=== PATIENT | male | born 1950 | race Caucasian/White ===

== ENCOUNTER 2016-08-03 12:31 | Inpatient (IN) | payer OTHER, MEDICARE ==
[~2016-08-03] VITALS: Ht 175.3 cm; Wt 124.5 kg
[~2016-08-03 12:31] MED LIST: ASPI81TA11 PO; CARV6.25 PO; COUM5TAB PO; DULC10SU3 PR; FERR325T PO; FURO1TAB60 PO; GABA300C5 PO; LIPI80TA PO; NITR2OIN TOPICAL; NOVOINJ3 SQ; OMEP20TA PO; PERC10TA27 PO; PERI8.6T PO; POTA-163 PO; PROS5TAB PO; SPIR25 PO; ULTR50TA5 PO; VITA100018 PO
[2016-08-03 12:33] VITALS: BP 159/77; PULSE 72; RESP 28; TEMP 97.8; O2SAT 97
--- NOTE | 2016-08-03 12:59 | PD ---
Physical Exam Time Seen by Provider: 12:56 Narrative 66 yo M with SOB x 2days. Hx CHF. Denies chest pain. Reports cellulitis coming out of his abdomen. VSS Seen in triage, awaiting bed placement. Data Data Last Documented VS Vital Signs Date Time Temp Pulse Resp B/P Pulse Ox O2 Delivery O2 Flow Rate FiO2 08/03/16 12:33 97.8 72 28 159/77 97 Room Air MDM Supervised Visit with TYLER: Virginia Alexander Aug 03, 2016 12:59
--- NOTE | 2016-08-03 15:31 | PD ---
HPI Chief Complaint: Respiratory Symptoms Time Seen by Provider: 15:31 Travel History International Travel<30 days: No Contact w/Intl Traveler<30days: No Traveled to known affect area: No History of Present Illness HPI 66-year-old male came to the emergency room with history of shortness of breath. Patient has history of congestive heart failure and diabetic. He says that shortness of breath is getting worse over the past 2 days. He is short of breath at rest. His also pointed out to the open sores on his both legs that are weeping and some redness in his abdominal wall area. His abdomen is getting more and more distended. He thinks he is getting fluid overloaded. He called his primary care in [place] who asked them to go to the ER. Vital signs here are within relatively acceptable limits. Patient does look significantly edematous and uncomfortable. He is afebrile in the ER. [facility] Past Medical History Narrative Medical List of his past medical, surgical, social and family history was reviewed from the nursing note. Hx Anticoagulant Therapy: Yes Arthritis: Yes Asthma: No Atrial Fibrillation: Yes Anxiety: No Depression: Yes Heart Rhythm Problems: Yes (CHRONIC AFIB) Cancer: No Cardiovascular Problems: Yes (COPD; a fib) High Cholesterol: Yes Chemotherapy: No Chest Pain: Yes Congestive Heart Failure: Yes COPD: No Cerebrovascular Accident: No Coronary Artery Disease: Yes Diabetes: Yes Diminished Hearing: No Endocrine: Yes Gastrointestinal Disorders: Yes GERD: No Genitourinary: No Hiatal Hernia: Yes (REPAIRED X2) Hypertension: Yes (HYPOTENSION) Immune Disorder: No Implanted Vascular Access Dvce: No Kidney Stones: No Musculoskeletal: Yes (BILAT KNEES ARTHROSCOPY) Neurologic: No Psychiatric: Yes (PTSD) Reproductive: No Respiratory: Yes Immunizations Current: Yes Migraines: No Pneumonia: Yes Radiation Therapy: No Renal Failure: No Seizures: No Sleep Apnea: Yes Thyroid Disease: No Ulcer: No Past Surgical History Abdominal Surgery: Yes (HERNIA REPAIR X2) AICD: No Appendectomy: Yes Arteriovenous Shunt: No Cardiac Surgery: Yes (CARDIAC CATH 2009) Ear Surgery: No Endocrine Surgery: No Eye Surgery: No Genitourinary Surgery: Yes Insulin Pump: No Joint Replacement: No Neurologic Surgery: No Oral Surgery: Yes (TEETH EXTRACTED) Pacemaker: No Tonsillectomy: Yes Other Surgery: Yes (HERNIA REPAIR/KNEES ARTHROSCOPIC/ RIGHT BICEP REPAIRED) Social History Alcohol Use: No Tobacco Use: No Substance Use: No Allergies-Medications (Allergen,Severity, Reaction): Coded Allergies: Shayne (Verified Allergy, Severe, 08/03/16) Comments List of his allergies reviewed from the nursing note. Reported Meds & Prescriptions Reported Meds & Active Scripts Active Reported Artificial Tears Opth Drops (Polyvinyl Alcohol) 1.4% Soln 1 Drop LEFT EYE TID PRN Refresh Opth Drops (Polyvinyl Alcohol-Povidone Opth Drops) 1.4-0.6% Drops 1 Drop EACH EYE QID Ammonium Lactate (Lactic Acid (Ammonium Lactate)) 12% Lotn 1 Applic TOPICAL BID PRN Omnipred Opth Drops (Prednisolone Acetate Opth Drops) 1% Susp 1 Drop LEFT EYE TID Prazosin (Prazosin HCl) 2 Mg Cap 4 Mg PO HS Lisinopril 20 Mg Tab 20 Mg PO DAILY Warfarin 7.5 Mg Tab 7.5 Mg PO SUTUTHSA @ 1600 Lantus Inj (Insulin Glargine) 1,000 Unit/10 Ml Vial 25 Units SQ BID Wellbutrin SR 12 HR (Bupropion HCl) 150 Mg Tab 150 Mg PO Q12HR Coumadin (Warfarin) 5 Mg Tab 5 Mg PO MOWEFR @ 1600 Ultram (Tramadol HCl) 50 Mg Tab 50 Mg PO Q6HR PRN Lipitor (Atorvastatin Calcium) 80 Mg Tab 80 Mg PO HS Gabapentin 300 Mg Cap 900 Mg PO BID Coreg (Carvedilol) 6.25 Mg Tab 6.25 Mg PO BID Vitamin D3 (Cholecalciferol) 1,000 Unit Tab 1,000 Units PO DAILY Potassium Chloride ER (Potassium Chloride) 20 Meq Tab 20 Meq PO DAILY Proscar (Finasteride) 5 Mg Tab 5 Mg PO DAILY Do not crush. Narrative Medication List of his home medications reviewed from the nursing note. Review of Systems Except as stated in HPI: all other systems reviewed are Neg Physical Exam Narrative GENERAL: Awake, alert, obese, anasarca, moderate distress SKIN: Focused skin assessment warm/dry. Anasarca, open sores on bilateral lower extremity that is oozing serosanguineous fluid HEAD: Atraumatic. Normocephalic. EYES: Pupils equal and round. No scleral icterus. No injection or drainage. ENT: No nasal bleeding or discharge. Mucous membranes pink and moist. NECK: Trachea midline. No JVD. CARDIOVASCULAR: Regular rate and rhythm. No murmur appreciated. RESPIRATORY: No accessory muscle use. Clear to auscultation. Breath sounds equal bilaterally. GASTROINTESTINAL: Abdomen soft, non-tender, nondistended. Hepatic and splenic margins not palpable. MUSCULOSKELETAL: No obvious deformities. No clubbing. No cyanosis. 3+ pitting edema. NEUROLOGICAL: Awake and alert. No obvious cranial nerve deficits. Motor grossly within normal limits. Normal speech. PSYCHIATRIC: Appropriate mood and affect; insight and judgment normal. Data Data Last Documented VS Orders Complete Blood Count With Diff (08/03/16 15:36) Basic Metabolic Panel (Bmp) (08/03/16 15:36) B-Type Natriuretic Peptide (08/03/16 15:36) Prothrombin Time / Inr (Pt) (08/03/16 15:36) Magnesium (Mg) (08/03/16 15:36) Troponin I (08/03/16 15:36) Blood Culture (08/03/16 15:36) Iv Access Insert/Monitor (08/03/16 15:36) Electrocardiogram (08/03/16 15:36) Ecg Monitoring (08/03/16 15:36) Oximetry (08/03/16 15:36) Oxygen Administration (08/03/16 15:36) Chest, Single Ap (08/03/16 15:36) Sodium Chloride 0.9% Flush (Ns Flush) (08/03/16 15:45) Furosemide Inj (Lasix Inj) (08/03/16 15:45) Cefazolin 2 Gm Premix (Ancef 2 Gm Premix (08/03/16 15:45) Vascular Access Team Consult PRN (08/03/16 16:06) Ct Thorax/ Chest Wo Iv Contras (08/03/16 ) Vascular Poc Ultrasound (08/03/16 ) Admit Order (Ed Use Only) (08/03/16 17:34) Labs MDM Medical Decision Making Medical Screen Exam Complete: Yes Emergency Medical Condition: Yes Medical Record Reviewed: Yes Interpretation(s) Twelve-lead EKG was reviewed by me. Atrial fibrillation, normal axis. Heart rate at 63 bpm. Differential Diagnosis Congestive heart failure, anasarca, electrolyte abnormality, cellulitis Narrative Course 4:40 PM blood test results are back. Patient is slightly anemic but does not require blood transfusion. Electrolytes are within normal limit. Awaiting for BNP. Troponin is negative. Patient has history of atrial fibrillation and his INR is therapeutic. Chest x-ray was read as questionable density in the right lower lobe. I've ordered a CT scan of the chest without contrast. Awaiting for the CT to be done and resulted. I've given patient IV Lasix. 5:[address] scan shows moderate right-sided pleural effusion with multiple hilar lymphadenopathy that is unchanged from 2014 as per the radiologist. Admitted the patient to the hospitalist at this point. I do not think his open sores on his lower extremity requires any antibiotic at the present time. Patient is afebrile and white count is within normal limit. Probably from the anasarca. Once the third spacing is minimized the wounds may start to get better. I've expressed this to the hospitalist as well Procedures EKG Prior to Arrival: No Diagnosis Primary Impression: Shortness of breath Additional Impressions: Anasarca Congestive heart failure Qualified Code: I50.9 - Congestive heart failure, unspecified congestive heart failure chronicity, unspecified congestive heart failure type Pleural effusion open leg sores Admitting Information Admitting Physician Requests: Admit Scripts Furosemide 40 Mg Tab40 Mg PO BID@ #60 TAB Ref 3 Prov:Osbaldo Morales MD 08/06/16 Aarti Mata MD Aug 03, 2016 15:31 Neutrophils # (Auto) 6.7 TH/MM3 Lymphocytes # (Auto) 0.9 TH/MM3 Monocytes # (Auto) 0.8 TH/MM3 Eosinophils # (Auto) 0.4 TH/MM3 Basophils # (Auto) 0.1 TH/MM3 CBC Comment DIFF FINAL Differential Comment Prothrombin Time 26.1 SEC Prothromb Time International 2.3 RATIO Ratio Sodium Level 142 MEQ/L Potassium Level 4.2 MEQ/L Chloride Level 108 MEQ/L Carbon Dioxide Level 27.5 MEQ/L Anion Gap 7 MEQ/L Blood Urea Nitrogen 16 MG/DL Creatinine 1.12 MG/DL Estimat Glomerular Filtration 66 ML/MIN Rate Random Glucose 94 MG/DL Calcium Level 8.5 MG/DL Magnesium Level 2.4 MG/DL Troponin I 0.02 NG/ML B-Type Natriuretic Peptide 445 PG/ML MDM Medical Decision Making Medical Screen Exam Complete: Yes Emergency Medical Condition: Yes Medical Record Reviewed: Yes Interpretation(s) Twelve-lead EKG was reviewed by me. Atrial fibrillation, normal axis. Heart rate at 63 bpm. Differential Diagnosis Congestive heart failure, anasarca, electrolyte abnormality, cellulitis Narrative Course 4:40 PM blood test results are back. Patient is slightly anemic but does not require blood transfusion. Electrolytes are within normal limit. Awaiting for BNP. Troponin is negative. Patient has history of atrial fibrillation and his INR is therapeutic. Chest x-ray was read as questionable density in the right lower lobe. I've ordered a CT scan of the chest without contrast. Awaiting for the CT to be done and resulted. I've given patient IV Lasix. 5:[address] scan shows moderate right-sided pleural effusion with multiple hilar lymphadenopathy that is unchanged from 2014 as per the radiologist. Admitted the patient to the hospitalist at this point. I do not think his open sores on his lower extremity requires any antibiotic at the present time. Patient is afebrile and white count is within normal limit. Probably from the anasarca. Once the third spacing is minimized the wounds may start to get better. I've expressed this to the hospitalist as well Procedures EKG Prior to Arrival: No Diagnosis Primary Impression: Shortness of breath Additional Impressions: Anasarca Congestive heart failure Qualified Code: I50.9 - Congestive heart failure, unspecified congestive heart failure chronicity, unspecified congestive heart failure type Pleural effusion open leg sores Admitting Information Admitting Physician Requests: Admit Aarti Mata MD Aug 03, 2016 15:31
[2016-08-03 15:44] VITALS: O2SAT 96
[2016-08-03] MEDS ORDERED: SODIUM CHLORIDE 0.9% FLUSH 10 ML FLUSH IVF PRN (15:45)
[2016-08-03] MEDS ORDERED: FUROSEMIDE 100 MG/10 ML VIAL IVP ONE (15:45)
[2016-08-03] MEDS ORDERED: ceFAZolin 2 GM PREMIX 50 ML IV ONE (15:45)
[2016-08-03 16:14] LABS: AUTOMATED NEUTROPHIL # 6.7 TH/MM3 (1.8-7.7); BASOPHIL # 0.1 TH/MM3 (0-0.2); BASOPHIL % 0.9 % (0.0-2.0); EOSINOPHIL # 0.4 TH/MM3 (0-0.4); EOSINOPHIL % 4.1 % (0.0-4.0); HEMO FLAGS DIFF FINAL; LYMPH % 10.3 % (9.0-44.0); LYMPHOCYTE # 0.9 TH/MM3 (1.0-4.8); MEAN CELL VOLUME 85.4 FL (80.0-100.0); MEAN CORPUSCULAR HEMOGLOBIN 26.4 PG (27.0-34.0); MEAN CORPUSCULAR HGB CONC 30.9 % (32.0-36.0); MONO % 8.6 % (0.0-8.0); NEUT % 76.1 % (16.0-70.0); PLATELET COUNT 207 TH/MM3 (150-450); RED CELL DISTRIBUTION WIDTH 16.9 % (11.6-17.2); WHITE BLOOD COUNT 8.7 TH/MM3 (4.0-11.0)
[2016-08-03 16:18] LABS: INTERNATIONAL NORMALIZED RATIO 2.3 RATIO; PROTHROMBIN TIME - PATIENT 26.1 SEC (9.8-11.6)
--- NOTE | 2016-08-03 16:24 | RADRPT ---
EXAM DATE/TIME: 08/03/2016 15:57 [facility] COMPARISON: CT ABDOMEN & PELVIS W/O CONTRAST, March 13, 2016, 12:11. CHEST SINGLE AP, February 23, 2016, 12:5 8. INDICATIONS : Patient has been short of breath for two days. MEDICAL HISTORY : Congestive heart failure. SURGICAL HISTORY : CABG. ENCOUNTER: Initial ACUITY: 2 days PAIN SCORE: 0/10 LOCATION: Bilateral chest FINDINGS: Portable AP view of the chest demonstrates enlargement of the cardiac silhouette in this patient post median sternotomy. There is an opacity in the medial right lower lung zone that may be associated wi th the heart or could be parenchymal. No pneumothorax or pleural effusion is visualized. The bones an d soft tissues demonstrate no acute finding. CONCLUSION: Opacity in the medial right lung base could be associated with the enlarged heart or could represent a parenchymal opacity such as consolidation. Good inspiratory formal PA and lateral views of the ches t may help differentiate. Alternatively, chest CT could also help differentiate if it would assist wi th clinical management. Chun Cunningham MD on August 03, 2016 at 16:21 Board Certified Radiologist. This report was verified electronically.
[2016-08-03 16:32] LABS: BICARBONATE 27.5 MEQ/L (21.0-32.0); MAGNESIUM 2.4 MG/DL (1.5-2.5); POTASSIUM 4.2 MEQ/L (3.5-5.1)
[2016-08-03] MEDS ORDERED: BUPR150CR PO (16:54)
[2016-08-03] MEDS ORDERED: LANTUS2P SQ (16:56)
[2016-08-03] MEDS ORDERED: WARF-21 PO (16:59)
[2016-08-03] MEDS ORDERED: PRAZ2CAP PO (17:00)
[2016-08-03] MEDS ORDERED: LISI-515 PO (17:00)
[2016-08-03] MEDS ORDERED: OMNI1SUS LEFT EYE (17:04)
[2016-08-03] MEDS ORDERED: AMMO12LO TOPICAL (17:06)
[2016-08-03] MEDS ORDERED: REFRDRO EACH EYE (17:09)
[2016-08-03] MEDS ORDERED: POLY99.0 LEFT EYE (17:11)
--- NOTE | 2016-08-03 17:17 | RADRPT ---
EXAM DATE/TIME: 08/03/2016 16:47 [facility] COMPARISON: CTA CHEST W 3D RECON, January 18, 2009, 22:23. CT THORAX W/O CONTRAST, January 09, 2015, 3:52. INDICATIONS : Shortness of breath. RADIATION DOSE: 11.35 CTDIvol (mGy) MEDICAL HISTORY : Cardiovascular disease. Hypertension. Hernia, hiatal. Diabetes. SURGICAL HISTORY : Tonsillectomy. ENCOUNTER: Initial ACUITY: 2 days PAIN SCALE: 0/10 LOCATION: chest TECHNIQUE: Volumetric scanning of the chest was performed. Using automated exposure control and adjustment of t he mA and/or kV according to patient size, radiation dose was kept as low as reasonably achievable to obtain optimal diagnostic quality images. FINDINGS: LUNGS: There is no consolidation or pneumothorax. No concerning pulmonary nodule is visualized. PLEURAE: There is no pleural thickening. A small pleural effusion right lung MEDIASTINUM: There are numerous prominent mediastinal lymph nodes all quite similar to December 2014. The root of the pulmonary artery is enlarged. AXILLAE: Within normal limits. No lymphadenopathy. MUSCULOSKELETAL: Within normal limits for patient age. MISCELLANEOUS: The visualized upper abdominal organs demonstrate no acute abnormality. CONCLUSION: Numerous large mediastinal lymph nodes are again noted similar to the December 2014 exam. Small righ t pleural effusion. No concerning pulmonary infiltrate or mass. Possible pulmonary arterial hypertens ion. Lymph nodes are also present back in December 2008 and are slightly increased in size since e Daniel Bill MD on August 03, 2016 at 17:12 Board Certified Radiologist. This report was verified electronically.
--- NOTE | 2016-08-03 18:15 | HHI.HP ---
HPI Service [facility] Hospitalists Primary Care Physician Josy Thompson MD Admission Diagnosis congestive heart failure, anasarca, bilateral lower extremity wounds Diagnoses: (1) Acute diastolic CHF (congestive heart failure) (2) Atrial fibrillation (3) IGOR (obstructive sleep apnea) (4) Diabetes mellitus (5) Hypertension (6) Hyperlipidemia (7) Benign prostate hyperplasia (8) CAD (coronary artery disease) (9) Venous stasis of both lower extremities Chief Complaint: SOB Lower extremity swelling Abdominal swelling Travel History International Travel<30 Days: No Contact w/Intl Traveler <30 Da: No Traveled to Known Affected Are: No History of Present Illness 66 yo male with PMHX of HTN, DM, CHF (EF 39%), CAD, s/p AVR 2012, dyslipidemia, COPD, PTSD, depression and IGOR non CPAP compliant who presents to [facility] ED with complaints of abdominal and lower extremity swelling 2-3 days with associated SOB. Patient denies any associated fever/chills, nausea/ vomiting, palpitation, cough or chest pain. He does complain of abdominal discomfort and is recently begun to have some weeping from the lower abdomen. He also reports weeping from both legs. He admits to orthopnea. He states that he has had a decrease in his urinary output with slow hesitant stream. He also complains of open sores on both his legs but these are chronic and he has been receiving treatment at the [facility]. He states these have been worsening over the past several days due to the increased swelling in his legs. In the ED, patient's BNP was 445. He is satting 96% on room air. He is afebrile and his white count is normal. CBC shows some mild anemia. Creatinine function is 1.12. CXR revealed a paced in the right middle lower lung and therefore CT was obtained showing numerous large mediastinal lymph nodes that were unchanged since December 2014 and a small right pleural effusion. Review of Systems Except as stated in HPI: all other systems reviewed are Neg (10 point review of systems completed and all pertinents negative except as stated in HPI) Past Family Social History Past Medical History HTN Atrial fibrillation on Coumadin CHF (EF 39% by MPS 02/05) CAD DM type II COPD Dyslipidemia IGOR PTSD Depression Past Surgical History AVR 2012 Hernia repair s/p cardiac catheterization 2010 Appendectomy Bilateral knee arthroscopy Reported Medications Artificial Tears Opth Drops (Polyvinyl Alcohol) 1.4% Soln 1 Drop LEFT EYE TID PRN Refresh Opth Drops (Polyvinyl Alcohol-Povidone Opth Drops) 1.4-0.6% Drops 1 Drop EACH EYE QID Ammonium Lactate (Lactic Acid (Ammonium Lactate)) 12% Lotn 1 Applic TOPICAL BID PRN Omnipred Opth Drops (Prednisolone Acetate Opth Drops) 1% Susp 1 Drop LEFT EYE TID Prazosin (Prazosin HCl) 2 Mg Cap 4 Mg PO HS Lisinopril 20 Mg Tab 20 Mg PO DAILY Warfarin 7.5 Mg Tab 7.5 Mg PO SUTUTHSA @ 1600 Lantus Inj (Insulin Glargine) 1,000 Unit/10 Ml Vial 25 Units SQ BID Wellbutrin SR 12 HR (Bupropion HCl) 150 Mg Tab 150 Mg PO Q12HR Coumadin (Warfarin) 5 Mg Tab 5 Mg PO MOWEFR @ 1600 Lasix (Furosemide) 40 Mg Tab 40 Mg PO DAILY Ultram (Tramadol HCl) 50 Mg Tab 50 Mg PO Q6HR PRN Lipitor (Atorvastatin Calcium) 80 Mg Tab 80 Mg PO HS Gabapentin 300 Mg Cap 900 Mg PO BID Coreg (Carvedilol) 6.25 Mg Tab 6.25 Mg PO BID Vitamin D3 (Cholecalciferol) 1,000 Unit Tab 1,000 Units PO DAILY Potassium Chloride ER (Potassium Chloride) 20 Meq Tab 20 Meq PO DAILY Proscar (Finasteride) 5 Mg Tab 5 Mg PO DAILY Do not crush. Allergies: Coded Allergies: Ambien (Verified Allergy, Severe, 08/03/16) Active Ordered Medications Current Medications Medications (Trade) Dose Ordered Sig/July Route Start Time Stop Time Status Last Admin (NS Flush) 2 ml UNSCH PRN IVF 08/03/16 15:45 Social History Patient has a history of remote tobacco use having quit 26yrs ago. Patient denies any ETOH use or illicit drug use. Physical Exam Vital Signs Vital Signs Date Time Temp Pulse Resp B/P Pulse Ox O2 Delivery O2 Flow Rate FiO2 08/03/16 15:44 96 Room Air 08/03/16 15:44 96 Room Air 08/03/16 15:44 71 22 96 Room Air 08/03/16 12:33 97.8 72 28 159/77 97 Room Air Physical Exam GENERAL: This is a well-nourished, well-developed patient, in no apparent distress. SKIN: No rashes, ecchymoses or lesions. Cool and dry. HEAD: Atraumatic. Normocephalic. No temporal or scalp tenderness. EYES: Pupils equal round and reactive. Extraocular motions intact. No scleral icterus. No injection or drainage. ENT: Nose without bleeding, purulent drainage or septal hematoma. Throat without erythema, tonsillar hypertrophy or exudate. Uvula midline. Airway patent. NECK: Trachea midline. No JVD or lymphadenopathy. Supple, nontender, no meningeal signs. CARDIOVASCULAR: Regular rate and rhythm without murmurs, gallops, or rubs. RESPIRATORY: Clear to auscultation. Breath sounds equal bilaterally. No wheezes , rales, or rhonchi. GASTROINTESTINAL: Abdomen soft, non-tender, nondistended. No hepato-splenomegaly , or palpable masses. No guarding. MUSCULOSKELETAL: Extremities without clubbing, cyanosis, or edema. No joint tenderness, effusion, or edema noted. No calf tenderness. Negative Homans sign bilaterally. NEUROLOGICAL: Awake and alert. Cranial nerves II through XII intact. Motor and sensory grossly within normal limits. Five out of 5 muscle strength in all muscle groups. Normal speech. Laboratory Laboratory Tests Test 08/03/16 16:04 White Blood Count 8.7 Red Blood Count 4.10 Hemoglobin 10.8 Hematocrit 35.0 Mean Corpuscular Volume 85.4 Mean Corpuscular Hemoglobin 26.4 Mean Corpuscular Hemoglobin 30.9 Concent Red Cell Distribution Width 16.9 Platelet Count 207 Mean Platelet Volume 8.1 Neutrophils (%) (Auto) 76.1 Lymphocytes (%) (Auto) 10.3 Monocytes (%) (Auto) 8.6 Eosinophils (%) (Auto) 4.1 Basophils (%) (Auto) 0.9 Neutrophils # (Auto) 6.7 Lymphocytes # (Auto) 0.9 Monocytes # (Auto) 0.8 Eosinophils # (Auto) 0.4 Basophils # (Auto) 0.1 CBC Comment DIFF FINAL Differential Comment Prothrombin Time 26.1 Prothromb Time International 2.3 Ratio Sodium Level 142 Potassium Level 4.2 Chloride Level 108 Carbon Dioxide Level 27.5 Anion Gap 7 Blood Urea Nitrogen 16 Creatinine 1.12 Estimat Glomerular Filtration 66 Rate Random Glucose 94 Calcium Level 8.5 Magnesium Level 2.4 Troponin I 0.02 B-Type Natriuretic Peptide 445 Result Diagram: 08/03/16 1604 08/03/16 1604 Imaging Last Impressions Chest X-Ray 08/03/16 1536 Signed Impressions: Service Date/Time: July 15:57 - CONCLUSION: Opacity in the medial right lung base could be associated with the enlarged heart or could represent a parenchymal opacity such as consolidation. Good inspiratory formal PA and lateral views of the chest may help differentiate. Alternatively, chest CT could also help differentiate if it would assist with clinical management. Chun Cunningham MD Chest CT 08/03/16 0000 Signed Impressions: Service Date/Time: , August 03, 2016 16:47 - CONCLUSION: Numerous large mediastinal lymph nodes are again noted similar to the December 2014 exam. Small right pleural effusion. No concerning pulmonary infiltrate or mass. Possible pulmonary arterial hypertension. Lymph nodes are also present back in December 2008 and are slightly increased in size since the Daniel Bill MD Assessment and Plan Problem List: (1) Acute diastolic CHF (congestive heart failure) ICD Code: I50.31 Status: Acute (2) Venous stasis of both lower extremities ICD Code: I87.8 Status: Acute (3) IGOR (obstructive sleep apnea) ICD Code: G47.33 Status: Acute (4) Diabetes mellitus ICD Code: E11.9 Status: Chronic (5) COPD (chronic obstructive pulmonary disease) ICD Code: J44.9 Status: Chronic (6) Hyperlipidemia ICD Code: E78.5 Status: Chronic (7) Hypertension ICD Code: I10 Status: Chronic Assessment and Plan 66 yo male with PMHX of HTN, DM, CHF (EF 39%), CAD, s/p AVR 2012, dyslipidemia, COPD, PTSD, depression and IGOR non CPAP compliant who presents to [facility] ED with complaints of abdominal and lower extremity swelling 2-3 days with associated SOB. CHF exacerbation - admit to inpatient - last Echo 02/05 revealing global hypokinesis with an EF of 39% - Repeat echocardiogram - Lasix 40 mg IV twice a day - Potassium 10 mg once daily - Continue to monitor electrolytes closely - NA/fluid restrictions - strict I&Os - daily weights Atrial fibrillation - rate controlled - resume home Coumadin dose - monitor PT/INR, currently therapeutic HTN/CAD - Adequate control at present - Resume home lisinopril and Coreg - ASA daily - monitor BP and adjust treatment as indicated IDDM - obtain A1c - Lantus 25units daily - Accu-Cheks - ISS Bilateral lower extremity sores - wound care consulted for management - monitor response BPH - resume home Proscar Dyslipidemia - Resume home statin dose - Obtain fasting lipid panel COPD - Duonebs prn IGOR - non CPAP compliant PTSD/Depression - resume home medications DVT prophylaxis - Heparin sq Written by Bijal Swain PA-C acting as scribe for Dr. Morales on 08/03/16 at 19:12. This note was transcribed by tyree []. I, Dr. Osbaldo Morales personally performed the history, physical exam, and medical decision making; and confirmed the accuracy of the information in the transcribed note. Authenticated by Dr. Osbaldo Morales on 08/03/16 at 19:12. Code Status Full code Discussed Condition With Patient, , ED physician Physician Certification 2 Midnight Certification Type: Admission for Inpatient Services Order for Inpatient Services The services are ordered in accordance with Medicare regulations or non- Medicare payer requirements, as applicable. In the case of services not specified as inpatient-only, they are appropriately provided as inpatient services in accordance with the 2-midnight benchmark. Estimated LOS (days): 2 2 days is the estimated time the patient will need to remain in the hospital, assuming treatment plan goals are met and no additional complications. Post-Hospital Plan: Not yet determined Bijal Swain Aug 03, 2016 18:15 Osbaldo Morales MD Aug 03, 2016 21:15
[2016-08-03] MEDS ORDERED: GLUCAGON 1 MG/ML VIAL OTHER PRN (18:45)
[2016-08-03] MEDS ORDERED: DEXTROSE 50% IN WATER 50 ML VIAL(D50) IV PUSH PRN (18:45)
[2016-08-03] MEDS ORDERED: SODIUM CHLORIDE 0.9% FLUSH 10 ML FLUSH IV FLUSH PRN (18:45)
[2016-08-03 18:48] VITALS: BP 177/82; PULSE 65; RESP 20; O2SAT 96
[2016-08-03] MEDS ORDERED: ARTIFICIAL TEARS OPTH SOLN 15 ML BTL LEFT EYE PRN (19:00)
[2016-08-03] MEDS ORDERED: RESP: ALBUTEROL 2.5 MG/IPRATROPIUM 0.5 MG NEB (PRN) NEB (19:15)
[2016-08-03] MEDS ORDERED: cloNIDine HCL 0.1 MG TAB PO PRN (19:15)
[2016-08-03] MEDS: INSULIN ASPART SUPPLEMENTAL SCALE SQ SCH (20:44)
[2016-08-03] MEDS: GABAPENTIN 300 MG CAP PO SCH (20:45)
[2016-08-03] MEDS: INSULIN DETEMIR 100 UNITS/ML VIAL SQ SCH (20:46)
[2016-08-03] MEDS: ATORVASTATIN 40 MG TAB PO SCH (20:46)
[2016-08-03] MEDS: POTASSIUM CHLORIDE 20 MEQ CONTROLLED RELEASE TAB PO SCH (20:46)
[2016-08-03] MEDS: HEPARIN SODIUM - SQ 10,000 UNITS/ML VIAL SQ SCH (20:51)
[2016-08-03] MEDS: POLYVINYL ALC-POVIDONE 1.4/0.6% PF OPTH SOLN 0.4 ML 30 CT EACH EYE SCH (20:51)
[2016-08-03] MEDS: SODIUM CHLORIDE 0.9% FLUSH 10 ML FLUSH IV FLUSH SCH (20:52)
[2016-08-03] MEDS: PRAZOSIN HCL 2 MG CAP PO SCH (21:00)
[2016-08-03 21:40] VITALS: BP 156/79; PULSE 87; RESP 18; TEMP 97.7; O2SAT 97
--- NOTE | 2016-08-03 22:31 | EKG ---
Date Performed: 08/03/2016 Time Performed: 15:52:22 PTAGE: 66 years EKG: ATRIAL FIBRILLATION NONSPECIFIC INTRAVENTRICULAR CONDUCTION DELAY NONSPECIFIC T-WAVE ABNORM ALITY ABNORMAL RHYTHM ECG PREVIOUS TRACING : 02/23/2016 12.32 No significant change from previous tracing noted. DOCTOR: Soto Pitt Interpretating Date/Time 08/03/2016 22:30:48
[2016-08-03] MEDS: buPROPion HCL 150 MG SUSTAINED RELEASE TAB PO SCH (23:25)
[2016-08-03] MEDS: CARVEDILOL 6.25 MG TAB PO SCH (23:25)
[2016-08-04] VITALS (8 sets, daily range): BP systolic 126–148; BP diastolic 64–83; PULSE 70–86; RESP 16–22; TEMP 97.7–98.5; O2SAT 95–100
[2016-08-04] MEDS: HEPARIN SODIUM - SQ 10,000 UNITS/ML VIAL SQ SCH ×3 (04:00→20:00)
[2016-08-04] MEDS: INSULIN ASPART SUPPLEMENTAL SCALE SQ SCH ×4 (06:38→21:00)
[2016-08-04 07:51] LABS: AUTOMATED NEUTROPHIL # 7.8 TH/MM3 (1.8-7.7); BASOPHIL # 0.1 TH/MM3 (0-0.2); BASOPHIL % 0.7 % (0.0-2.0); EOSINOPHIL # 0.3 TH/MM3 (0-0.4); EOSINOPHIL % 3.2 % (0.0-4.0); HEMATOCRIT 33.2 % (39.0-51.0); HEMO FLAGS DIFF FINAL; LYMPH % 7.2 % (9.0-44.0); LYMPHOCYTE # 0.7 TH/MM3 (1.0-4.8); MEAN CORPUSCULAR HEMOGLOBIN 26.7 PG (27.0-34.0); MEAN CORPUSCULAR HGB CONC 31.4 % (32.0-36.0); MONO % 10.8 % (0.0-8.0); NEUT % 78.1 % (16.0-70.0); PLATELET COUNT 228 TH/MM3 (150-450); RED BLOOD COUNT 3.91 MIL/MM3 (4.50-5.90); RED CELL DISTRIBUTION WIDTH 16.7 % (11.6-17.2)
[2016-08-04 07:59] LABS: PROTHROMBIN TIME - PATIENT 22.7 SEC (9.8-11.6)
[2016-08-04] MEDS: FINASTERIDE 5 MG TAB PO SCH (08:16)
[2016-08-04] MEDS: POTASSIUM CHLORIDE 20 MEQ CONTROLLED RELEASE TAB PO SCH ×2 (08:16→22:37)
[2016-08-04] MEDS: CHOLECALCIFEROL (VIT D3) 1000 UNIT TAB PO SCH (08:16)
[2016-08-04] MEDS: ASPIRIN 81 MG CHEW TAB CHEW SCH (08:16)
[2016-08-04] MEDS: GABAPENTIN 300 MG CAP PO SCH ×2 (08:17→22:36)
[2016-08-04] MEDS: CARVEDILOL 6.25 MG TAB PO SCH ×2 (08:17→22:37)
[2016-08-04] MEDS: LISINOPRIL 20 MG TAB PO SCH (08:17)
[2016-08-04] MEDS: FUROSEMIDE 40 MG/4 ML VIAL IVP SCH ×2 (08:17→17:21)
[2016-08-04] MEDS: buPROPion HCL 150 MG SUSTAINED RELEASE TAB PO SCH ×2 (08:17→22:37)
[2016-08-04 08:18] LABS: ANION GAP 6 MEQ/L (5-15); BICARBONATE 31.2 MEQ/L (21.0-32.0); BLOOD UREA NITROGEN 15 MG/DL (7-18); CHLORIDE 106 MEQ/L (98-107); GLOMERULAR FILTRATION RATE 66 ML/MIN (>89); POTASSIUM 3.9 MEQ/L (3.5-5.1); SODIUM (NA) 143 MEQ/L (136-145)
[2016-08-04] MEDS: SODIUM CHLORIDE 0.9% FLUSH 10 ML FLUSH IV FLUSH SCH ×2 (08:18→21:00)
[2016-08-04 08:19] LABS: HDL CHOLESTEROL 30.7 MG/DL (40.0-60.0)
[2016-08-04 08:20] LABS: LDL CHOLESTEROL 40 MG/DL (0-99)
[2016-08-04] MEDS: prednisoLONE ACETATE 1% OPHT SUSP 5 ML BTL LEFT EYE SCH ×3 (08:45→17:20)
[2016-08-04] MEDS: POLYVINYL ALC-POVIDONE 1.4/0.6% PF OPTH SOLN 0.4 ML 30 CT EACH EYE SCH ×4 (08:45→21:00)
[2016-08-04 11:32] LABS: HEMOGLOBIN A1a 1.2 %; HEMOGLOBIN A1b 0.7 %; HEMOGLOBIN Ao 85.3 %; HEMOGLOBIN F 1.5 %; HEMOGLOBIN LA1C 1.8 %; HEMOGLOBIN P3 4.9 %
--- NOTE | 2016-08-04 11:35 | EC ---
Study Study Date:08/04/2016 STUDY CONCLUSIONS SUMMARY - Procedure narrative: Transthoracic echocardiography. Image quality was fair. Scanning was performed from the parasternal, apical, and subcostal acoustic windows. - Left ventricle: The cavity size was normal. Wall thickness was normal. Systolic function was normal. The estimated ejection fraction was in the range of 50% to 55%. Although no diagnostic regional wall motion abnormality was identified, this possibility cannot be completely excluded on the basis of this study. - Aortic valve: Not well visualized. Appears to be bioprosthetic valve with normal function. - Mitral valve: Mildly calcified annulus. Mild to moderate regurgitation. - Left atrium: The atrium was mildly dilated. - Right atrium: The atrium was mildly dilated. - Tricuspid valve: Mild regurgitation. If LV function is below 40, please consider prescribing an ACEI or ARB or document rationale for non-use. PROCEDURE DATA STUDY STATUS: Elective. Procedure: Transthoracic echocardiography. Image quality was fair. Scanning was performed from the parasternal, apical, and subcostal acoustic windows. Study completion: The patient tolerated the procedure well. Transthoracic echocardiography. M-mode, complete 2D, complete spectral Doppler, and color Doppler. Patient status: Inpatient. CARDIAC ANATOMY LEFT VENTRICLE: The cavity size was normal. Wall thickness was normal. Systolic function was normal. The estimated ejection fraction was in the range of 50% to 55%. Although no diagnostic regional wall motion abnormality was identified, this possibility cannot be completely excluded on the basis of this study. AORTIC VALVE: Not well visualized. Appears to be bioprosthetic valve with normal function. Doppler: Transvalvular velocity was within the normal range. There was no stenosis. No regurgitation. AORTA: Aortic root: The aortic root was normal in size. MITRAL VALVE: Mildly calcified annulus. Doppler: Transvalvular velocity was within the normal range. There was no evidence for stenosis. Mild to moderate regurgitation. LEFT ATRIUM: The atrium was mildly dilated. RIGHT VENTRICLE: The cavity size was normal. Wall thickness was normal. PULMONIC VALVE: Doppler: Transvalvular velocity was within the normal range. There was no evidence for stenosis. No regurgitation. TRICUSPID VALVE: Structurally normal valve. Doppler: Transvalvular velocity was within the normal range. Mild regurgitation. PULMONARY ARTERY: The main pulmonary artery was normal-sized. Systolic pressure was within the normal range. RIGHT ATRIUM: The atrium was mildly dilated. PERICARDIUM: There was no pericardial effusion. SYSTEMIC VEINS: Inferior vena cava: The vessel was normal in size. Prepared and signed by Soto Pitt [id number]
--- NOTE | 2016-08-04 11:58 | HHI.PR ---
Subjective Remarks Follow up acute diastolic CHF exacerbation 08/04/16-patient seen and examined; reports some significant improvement of shortness of breath. complains of sore throat pain. afebrile Objective Vitals Vital Signs Date Time Temp Pulse Resp B/P Pulse Ox O2 Delivery O2 Flow Rate FiO2 08/04/16 09:35 96 21 08/04/16 08:09 98.4 73 19 148/83 95 08/04/16 08:00 75 08/04/16 08:00 Room Air 08/04/16 04:00 98.3 71 16 139/64 96 08/04/16 00:00 97.7 86 18 139/79 95 08/03/16 23:13 Room Air 08/03/16 21:40 97.7 87 18 156/79 97 08/03/16 19:24 97 Room Air 08/03/16 18:48 65 20 177/82 96 Room Air 08/03/16 15:44 96 Room Air 08/03/16 15:44 96 Room Air 08/03/16 15:44 71 22 96 Room Air 08/03/16 12:33 97.8 72 28 159/77 97 Room Air I/O 08/03/16 08/03/16 08/03/16 08/04/16 08/04/16 08/04/16 07:00 15:00 23:00 07:00 15:00 23:00 Intake Total 300 ml 240 ml Output Total 3450 ml 1000 ml Balance -3150 ml -760 ml Intake Oral 300 ml 240 ml Output Urine Total 3450 ml 1000 ml # Voids 0 # Bowel Movements 0 0 Result Diagram: 08/04/16 0630 08/04/16 0630 Imaging Last Impressions Chest X-Ray 08/03/16 1536 Signed Impressions: Service Date/Time: July 15:57 - CONCLUSION: Opacity in the medial right lung base could be associated with the enlarged heart or could represent a parenchymal opacity such as consolidation. Good inspiratory formal PA and lateral views of the chest may help differentiate. Alternatively, chest CT could also help differentiate if it would assist with clinical management. Chun Cunningham MD Chest CT 08/03/16 0000 Signed Impressions: Service Date/Time: July 16:47 - CONCLUSION: Numerous large mediastinal lymph nodes are again noted similar to the December 2014 exam. Small right pleural effusion. No concerning pulmonary infiltrate or mass. Possible pulmonary arterial hypertension. Lymph nodes are also present back in December 2008 and are slightly increased in size since the Daniel Bill MD Objective Remarks GENERAL: NAD and sitting in a chair SKIN: Warm and dry. HEAD: Normocephalic. EYES: No scleral icterus. No injection or drainage. NECK: Supple, trachea midline. No JVD or lymphadenopathy. CARDIOVASCULAR: Regular rate and rhythm without murmurs, gallops, or rubs. RESPIRATORY: Breath sounds equal bilaterally. No accessory muscle use. GASTROINTESTINAL: Abdomen soft, non-tender, nondistended. MUSCULOSKELETAL: No cyanosis, or edema. venous stasis of BLE with open sores BACK: Nontender without obvious deformity. No CVA tenderness. A/P Problem List: (1) Acute diastolic CHF (congestive heart failure) ICD Code: I50.31 Status: Acute (2) Venous stasis of both lower extremities ICD Code: I87.8 Status: Acute (3) IGOR (obstructive sleep apnea) ICD Code: G47.33 Status: Acute (4) Diabetes mellitus ICD Code: E11.9 Status: Chronic (5) COPD (chronic obstructive pulmonary disease) ICD Code: J44.9 Status: Chronic (6) Hyperlipidemia ICD Code: E78.5 Status: Chronic (7) Hypertension ICD Code: I10 Status: Chronic Assessment and Plan 66 yrs old man with Acute diastolic CHF exacerbation - 2 D echocardiogram with EF of 50% - Lasix 40 mg IV twice a day and will change to PO 08/05/16 - Potassium 10 mg once daily - NA/fluid restrictions - strict I&Os Atrial fibrillation - rate controlled - continue home Coumadin dose - monitor PT/INR, currently therapeutic HTN/CAD - Adequate control at present - continue home lisinopril and Coreg - ASA daily Sore throat: Lozenge PRN IDDM - A1c pending - Lantus 25units daily - Accu-Cheks and ISS Bilateral lower extremity sores - wound care consulted for management BPH - continue home Proscar Dyslipidemia - continue home statin dose COPD - Duonebs prn IGOR - non CPAP compliant PTSD/Depression - continue home medications DVT prophylaxis - Coumadin Osbaldo Morales MD Aug 04, 2016 11:58
[2016-08-04] MEDS ORDERED: MENTHOL LOZENGE BUCCAL PRN (12:00)
[2016-08-04] MEDS ORDERED: PHENOL 1.4% SOLN 180 ML BTL MT PRN (12:00)
[2016-08-04] MEDS ORDERED: WARFARIN SOD 5 MG TAB PO SCH (16:00)
[2016-08-04] MEDS: INSULIN DETEMIR 100 UNITS/ML VIAL SQ SCH (22:36)
[2016-08-04] MEDS: PRAZOSIN HCL 2 MG CAP PO SCH (22:36)
[2016-08-04] MEDS: ATORVASTATIN 40 MG TAB PO SCH (22:37)
[2016-08-05] VITALS (9 sets, daily range): BP systolic 121–164; BP diastolic 57–71; PULSE 62–80; RESP 16–20; TEMP 97.9–100; O2SAT 93–97
[2016-08-05] MEDS: HEPARIN SODIUM - SQ 10,000 UNITS/ML VIAL SQ SCH ×3 (04:00→20:50)
[2016-08-05] MEDS: INSULIN ASPART SUPPLEMENTAL SCALE SQ SCH ×4 (06:33→20:50)
[2016-08-05] MEDS: prednisoLONE ACETATE 1% OPHT SUSP 5 ML BTL LEFT EYE SCH ×3 (09:00→17:54)
[2016-08-05] MEDS: POLYVINYL ALC-POVIDONE 1.4/0.6% PF OPTH SOLN 0.4 ML 30 CT EACH EYE SCH ×4 (09:00→20:50)
[2016-08-05] MEDS: ASPIRIN 81 MG CHEW TAB CHEW SCH (09:29)
[2016-08-05] MEDS: SODIUM CHLORIDE 0.9% FLUSH 10 ML FLUSH IV FLUSH SCH ×2 (09:30→20:50)
[2016-08-05] MEDS: CARVEDILOL 6.25 MG TAB PO SCH ×2 (09:30→20:49)
[2016-08-05] MEDS: POTASSIUM CHLORIDE 20 MEQ CONTROLLED RELEASE TAB PO SCH ×2 (09:31→20:49)
[2016-08-05] MEDS: GABAPENTIN 300 MG CAP PO SCH ×2 (09:31→20:49)
[2016-08-05] MEDS: LISINOPRIL 20 MG TAB PO SCH (09:32)
[2016-08-05] MEDS: FINASTERIDE 5 MG TAB PO SCH (09:32)
[2016-08-05] MEDS: buPROPion HCL 150 MG SUSTAINED RELEASE TAB PO SCH ×2 (09:32→20:49)
[2016-08-05] MEDS: CHOLECALCIFEROL (VIT D3) 1000 UNIT TAB PO SCH (09:32)
[2016-08-05] MEDS: FUROSEMIDE 40 MG TAB PO SCH ×2 (09:36→17:55)
--- NOTE | 2016-08-05 10:37 | HHI.PR ---
Subjective Remarks Follow up acute diastolic CHF exacerbation 08/04/16-patient seen and examined; reports some significant improvement of shortness of breath. complains of sore throat pain. afebrile 08/05/16-patient seen and examined; reports some improvement of shortness of breath; complains of back pain Objective Vitals Vital Signs Date Time Temp Pulse Resp B/P Pulse Ox O2 Delivery O2 Flow Rate FiO2 08/05/16 09:40 95 Room Air 08/05/16 08:00 98.0 65 20 139/68 95 08/05/16 05:37 80 08/05/16 04:00 97.9 66 18 121/60 93 08/05/16 00:00 98.4 80 20 155/71 96 08/04/16 20:00 98.5 74 22 140/65 100 08/04/16 16:09 98.4 70 18 126/76 95 08/04/16 12:09 98.2 70 19 135/67 95 I/O 08/04/16 08/04/16 08/04/16 08/05/16 08/05/16 08/05/16 07:00 15:00 23:00 07:00 15:00 23:00 Intake Total 240 ml 480 ml 240 ml 120 ml Output Total 1000 ml 2400 ml 1850 ml 175 ml Balance -760 ml -1920 ml -1610 ml -55 ml Intake Oral 240 ml 480 ml 240 ml 120 ml Output Urine Total 1000 ml 2400 ml 1850 ml 175 ml # Bowel Movements 0 2 0 0 Result Diagram: 08/04/16 0630 08/04/16 0630 Imaging Last Impressions Chest X-Ray 08/03/16 1536 Signed Impressions: Service Date/Time: July 15:57 - CONCLUSION: Opacity in the medial right lung base could be associated with the enlarged heart or could represent a parenchymal opacity such as consolidation. Good inspiratory formal PA and lateral views of the chest may help differentiate. Alternatively, chest CT could also help differentiate if it would assist with clinical management. Chun Cunningham MD Chest CT 08/03/16 0000 Signed Impressions: Service Date/Time: July 16:47 - CONCLUSION: Numerous large mediastinal lymph nodes are again noted similar to the December 2014 exam. Small right pleural effusion. No concerning pulmonary infiltrate or mass. Possible pulmonary arterial hypertension. Lymph nodes are also present back in December 2008 and are slightly increased in size since the Daniel Bill MD Objective Remarks GENERAL: NAD and sitting in a chair SKIN: Warm and dry. HEAD: Normocephalic. EYES: No scleral icterus. No injection or drainage. NECK: Supple, trachea midline. No JVD or lymphadenopathy. CARDIOVASCULAR: Regular rate and rhythm without murmurs, gallops, or rubs. RESPIRATORY: Breath sounds equal bilaterally. No accessory muscle use. GASTROINTESTINAL: Abdomen soft, non-tender, nondistended. MUSCULOSKELETAL: No cyanosis, or edema. venous stasis of BLE with open sores BACK: Nontender without obvious deformity. No CVA tenderness. A/P Problem List: (1) Acute diastolic CHF (congestive heart failure) ICD Code: I50.31 Status: Acute (2) Venous stasis of both lower extremities ICD Code: I87.8 Status: Acute (3) IGOR (obstructive sleep apnea) ICD Code: G47.33 Status: Acute (4) Diabetes mellitus ICD Code: E11.9 Status: Chronic (5) COPD (chronic obstructive pulmonary disease) ICD Code: J44.9 Status: Chronic (6) Hyperlipidemia ICD Code: E78.5 Status: Chronic (7) Hypertension ICD Code: I10 Status: Chronic Assessment and Plan 66 yrs old man with Acute diastolic CHF exacerbation - 2 D echocardiogram with EF of 50% - s/p Lasix 40 mg IV twice a day and now on Lasix 40 mg by mouth daily - Potassium 10 mg once daily - NA/fluid restrictions - strict I&Os Atrial fibrillation - rate controlled - continue home Coumadin dose - monitor PT/INR, currently therapeutic HTN/CAD - Adequate control at present - continue home lisinopril and Coreg - ASA daily Sore throat: Improved with Lozenge PRN IDDM - A1c pending - Lantus 25units daily - Accu-Cheks and ISS Bilateral lower extremity sores - wound care consulted for management BPH - continue home Proscar Dyslipidemia - continue home statin dose COPD - Duonebs prn IGOR - non CPAP compliant PTSD/Depression - continue home medications DVT prophylaxis - Coumadin Osbaldo Morales MD Aug 05, 2016 10:37
[2016-08-05] MEDS ORDERED: traMADol HCL 50 MG TAB PO PRN (11:00)
[2016-08-05 11:10] LABS: INTERNATIONAL NORMALIZED RATIO 1.8 RATIO
[2016-08-05 11:21] LABS: BICARBONATE 30.9 MEQ/L (21.0-32.0); POTASSIUM 3.7 MEQ/L (3.5-5.1)
[2016-08-05] MEDS ORDERED: WARFARIN SOD 7.5 MG TAB PO SCH (16:00)
[2016-08-05] MEDS: ATORVASTATIN 40 MG TAB PO SCH (20:49)
[2016-08-05] MEDS: INSULIN DETEMIR 100 UNITS/ML VIAL SQ SCH (20:50)
[2016-08-05] MEDS: PRAZOSIN HCL 2 MG CAP PO SCH (20:54)
[2016-08-06] VITALS: BP 159/70; PULSE 70; RESP 18; TEMP 99.2; O2SAT 94
[2016-08-06 04:00] VITALS: BP 158/72; PULSE 50; RESP 16; TEMP 98.4; O2SAT 93
[2016-08-06] MEDS: HEPARIN SODIUM - SQ 10,000 UNITS/ML VIAL SQ SCH ×2 (04:18→14:30)
[2016-08-06] MEDS: INSULIN ASPART SUPPLEMENTAL SCALE SQ SCH ×2 (06:25→11:00)
[2016-08-06 07:14] LABS: INTERNATIONAL NORMALIZED RATIO 1.6 RATIO; PROTHROMBIN TIME - PATIENT 18.6 SEC (9.8-11.6)
[2016-08-06 08:00] VITALS: BP 157/80; PULSE 69; RESP 20; TEMP 97.9; O2SAT 96
[2016-08-06] MEDS: POLYVINYL ALC-POVIDONE 1.4/0.6% PF OPTH SOLN 0.4 ML 30 CT EACH EYE SCH ×2 (09:23→14:30)
[2016-08-06] MEDS ORDERED: FURO40TA PO (09:23)
[2016-08-06] MEDS: ASPIRIN 81 MG CHEW TAB CHEW SCH (09:23)
[2016-08-06] MEDS: SODIUM CHLORIDE 0.9% FLUSH 10 ML FLUSH IV FLUSH SCH (09:23)
[2016-08-06] MEDS: prednisoLONE ACETATE 1% OPHT SUSP 5 ML BTL LEFT EYE SCH ×2 (09:24→14:30)
[2016-08-06] MEDS: POTASSIUM CHLORIDE 20 MEQ CONTROLLED RELEASE TAB PO SCH (09:24)
[2016-08-06] MEDS: CARVEDILOL 6.25 MG TAB PO SCH (09:24)
[2016-08-06] MEDS: buPROPion HCL 150 MG SUSTAINED RELEASE TAB PO SCH (09:25)
[2016-08-06] MEDS: CHOLECALCIFEROL (VIT D3) 1000 UNIT TAB PO SCH (09:25)
[2016-08-06] MEDS: FUROSEMIDE 40 MG TAB PO SCH (09:25)
[2016-08-06] MEDS: GABAPENTIN 300 MG CAP PO SCH (09:25)
[2016-08-06] MEDS: LISINOPRIL 20 MG TAB PO SCH (09:25)
[2016-08-06] MEDS: FINASTERIDE 5 MG TAB PO SCH (09:25)
--- NOTE | 2016-08-06 09:26 | HHI.PR ---
Subjective Remarks Follow up acute diastolic CHF exacerbation 08/04/16-patient seen and examined; reports some significant improvement of shortness of breath. complains of sore throat pain. afebrile 08/05/16-patient seen and examined; reports some improvement of shortness of breath; complains of back pain 08/06/16-patient seen and examined, breathing much better and denies any chest pain. Initially patient stated he only voided once however the nurse was able to confirm that patient voided multiple times after Fletcher was discontinued yesterday. Objective Vitals Vital Signs Date Time Temp Pulse Resp B/P Pulse Ox O2 Delivery O2 Flow Rate FiO2 08/06/16 04:00 98.4 50 16 158/72 93 08/06/16 00:00 99.2 70 18 159/70 94 08/05/16 20:00 71 08/05/16 20:00 Room Air 08/05/16 20:00 100.0 74 20 164/71 93 08/05/16 18:00 77 08/05/16 16:00 98.4 68 16 134/57 95 08/05/16 12:00 97.9 62 20 132/60 97 08/05/16 11:58 97 21 08/05/16 09:40 95 Room Air I/O 08/05/16 08/05/16 08/05/16 08/06/16 08/06/16 08/06/16 07:00 15:00 23:00 07:00 15:00 23:00 Intake Total 120 ml 720 ml 240 ml 240 ml Output Total 175 ml 100 ml 1000 ml Balance -55 ml 720 ml 140 ml -760 ml Intake Oral 120 ml 720 ml 240 ml 240 ml IV Total 0 ml Output Urine Total 175 ml 100 ml 1000 ml # Voids 2 # Bowel Movements 0 0 0 0 Result Diagram: 08/04/16 0630 08/05/16 0951 Imaging Last Impressions Chest X-Ray 08/03/16 1536 Signed Impressions: Service Date/Time: July 15:57 - CONCLUSION: Opacity in the medial right lung base could be associated with the enlarged heart or could represent a parenchymal opacity such as consolidation. Good inspiratory formal PA and lateral views of the chest may help differentiate. Alternatively, chest CT could also help differentiate if it would assist with clinical management. Chun Cunningham MD Chest CT 08/03/16 0000 Signed Impressions: Service Date/Time: July 16:47 - CONCLUSION: Numerous large mediastinal lymph nodes are again noted similar to the December 2014 exam. Small right pleural effusion. No concerning pulmonary infiltrate or mass. Possible pulmonary arterial hypertension. Lymph nodes are also present back in December 2008 and are slightly increased in size since the Daniel Bill MD Objective Remarks GENERAL: NAD and sitting in a chair SKIN: Warm and dry. HEAD: Normocephalic. EYES: No scleral icterus. No injection or drainage. NECK: Supple, trachea midline. No JVD or lymphadenopathy. CARDIOVASCULAR: Regular rate and rhythm without murmurs, gallops, or rubs. RESPIRATORY: Breath sounds equal bilaterally. No accessory muscle use. GASTROINTESTINAL: Abdomen soft, non-tender, nondistended. MUSCULOSKELETAL: No cyanosis, or edema. venous stasis of BLE with open sores BACK: Nontender without obvious deformity. No CVA tenderness. Procedures none A/P Problem List: (1) Acute diastolic CHF (congestive heart failure) ICD Code: I50.31 Status: Resolved (2) Venous stasis of both lower extremities ICD Code: I87.8 Status: Chronic (3) IGOR (obstructive sleep apnea) ICD Code: G47.33 Status: Acute (4) Diabetes mellitus ICD Code: E11.9 Status: Chronic (5) COPD (chronic obstructive pulmonary disease) ICD Code: J44.9 Status: Chronic (6) Hyperlipidemia ICD Code: E78.5 Status: Chronic (7) Hypertension ICD Code: I10 Status: Chronic Assessment and Plan 66 yrs old man with Acute diastolic CHF exacerbation - 2 D echocardiogram with EF of 50% - s/p Lasix 40 mg IV twice a day and continue Lasix 40 mg by mouth BID - Potassium 10 mg once daily - NA/fluid restrictions - strict I&Os Atrial fibrillation - rate controlled - continue home Coumadin dose - monitor PT/INR, currently therapeutic HTN/CAD - Adequate control at present - continue home lisinopril and Coreg - ASA daily Sore throat: Improved with Lozenge PRN IDDM - A1c 5.6 - Lantus 25units daily - Accu-Cheks and ISS Bilateral lower extremity sores - wound care consulted for management BPH - continue home Proscar Dyslipidemia - continue home statin dose COPD - Duonebs prn IGOR - non CPAP compliant PTSD/Depression - continue home medications DVT prophylaxis - Coumadin Osbaldo Morales MD Aug 06, 2016 09:26
--- NOTE | 2016-08-06 09:28 | HHI.DS ---
Discharge Summary Admission Date Aug 03, 2016 at 17:36 Discharge Date: Aug 06, 2016 Admitting Diagnosis congestive heart failure, anasarca, bilateral lower extremity wounds (1) Acute diastolic CHF (congestive heart failure) ICD Code: I50.31 (2) Venous stasis of both lower extremities ICD Code: I87.8 (3) IGOR (obstructive sleep apnea) ICD Code: G47.33 (4) Diabetes mellitus ICD Code: E11.9 (5) COPD (chronic obstructive pulmonary disease) ICD Code: J44.9 (6) Hyperlipidemia ICD Code: E78.5 (7) Hypertension ICD Code: I10 Procedures none Brief History - From Admission 66 yo male with PMHX of HTN, DM, CHF (EF 39%), CAD, s/p AVR 2012, dyslipidemia, COPD, PTSD, depression and IGOR non CPAP compliant who presents to [facility] ED with complaints of abdominal and lower extremity swelling 2-3 days with associated SOB. Patient denies any associated fever/chills, nausea/ vomiting, palpitation, cough or chest pain. He does complain of abdominal discomfort and is recently begun to have some weeping from the lower abdomen. He also reports weeping from both legs. He admits to orthopnea. He states that he has had a decrease in his urinary output with slow hesitant stream. He also complains of open sores on both his legs but these are chronic and he has been receiving treatment at the OR. He states these have been worsening over the past several days due to the increased swelling in his legs. In the ED, patient's BNP was 445. He is satting 96% on room air. He is afebrile and his white count is normal. CBC shows some mild anemia. Creatinine function is 1.12. CXR revealed a paced in the right middle lower lung and therefore CT was obtained showing numerous large mediastinal lymph nodes that were unchanged since December 2014 and a small right pleural effusion. CBC/BMP: 08/04/16 0630 08/05/16 0951 Significant Findings Laboratory Tests Test 08/03/16 08/04/16 08/05/16 08/05/16 16:04 06:30 09:51 10:41 Red Blood Count 4.10 MIL/MM3 3.91 MIL/MM3 (4.50-5.90) (4.50-5.90) Hemoglobin 10.8 GM/DL 10.4 GM/DL (13.0-17.0) (13.0-17.0) Hematocrit 35.0 % 33.2 % (39.0-51.0) (39.0-51.0) Mean Corpuscular Hemoglobin 26.4 PG 26.7 PG (27.0-34.0) (27.0-34.0) Mean Corpuscular Hemoglobin 30.9 % 31.4 % Concent (32.0-36.0) (32.0-36.0) Neutrophils (%) (Auto) 76.1 % 78.1 % (16.0-70.0) (16.0-70.0) Monocytes (%) (Auto) 8.6 % (0.0-8.0) 10.8 % (0.0-8.0) Eosinophils (%) (Auto) 4.1 % (0.0-4.0) Lymphocytes # (Auto) 0.9 TH/MM3 0.7 TH/MM3 (1.0-4.8) (1.0-4.8) Prothrombin Time 26.1 SEC 22.7 SEC 20.0 SEC (9.8-11.6) (9.8-11.6) (9.8-11.6) Chloride Level 108 MEQ/L (98-107) Estimat Glomerular Filtration 66 ML/MIN (>89) 66 ML/MIN (>89) 66 ML/MIN (>89) Rate B-Type Natriuretic Peptide 445 PG/ML (0-100) Lymphocytes (%) (Auto) 7.2 % (9.0-44.0) Neutrophils # (Auto) 7.8 TH/MM3 (1.8-7.7) Monocytes # (Auto) 1.1 TH/MM3 (0-0.9) Calcium Level 8.1 MG/DL (8.5-10.1) Cholesterol Level 86 MG/DL (120-200) HDL Cholesterol 30.7 MG/DL (40.0-60.0) Random Glucose 122 MG/DL (74-106) Test 08/06/16 05:40 Prothrombin Time 18.6 SEC (9.8-11.6) Imaging Last Impressions Chest X-Ray 08/03/16 1536 Signed Impressions: Service Date/Time: July 15:57 - CONCLUSION: Opacity in the medial right lung base could be associated with the enlarged heart or could represent a parenchymal opacity such as consolidation. Good inspiratory formal PA and lateral views of the chest may help differentiate. Alternatively, chest CT could also help differentiate if it would assist with clinical management. Chun Cunningham MD Chest CT 08/03/16 0000 Signed Impressions: Service Date/Time: , August 03, 2016 16:47 - CONCLUSION: Numerous large mediastinal lymph nodes are again noted similar to the December 2014 exam. Small right pleural effusion. No concerning pulmonary infiltrate or mass. Possible pulmonary arterial hypertension. Lymph nodes are also present back in December 2008 and are slightly increased in size since the Daniel Bill MD PE at Discharge GENERAL: NAD and sitting in a chair SKIN: Warm and dry. HEAD: Normocephalic. EYES: No scleral icterus. No injection or drainage. NECK: Supple, trachea midline. No JVD or lymphadenopathy. CARDIOVASCULAR: Regular rate and rhythm without murmurs, gallops, or rubs. RESPIRATORY: Breath sounds equal bilaterally. No accessory muscle use. GASTROINTESTINAL: Abdomen soft, non-tender, nondistended. MUSCULOSKELETAL: No cyanosis, or edema. venous stasis of BLE with open sores BACK: Nontender without obvious deformity. No CVA tenderness. Hospital Course Patient was admitted secondary to acute diastolic CHF exacerbation with he was started on IV Lasix 40 mg twice a day which was subsequently switched to by mouth, and he was given potassium supplement with significant improvement of shortness of breath and bilateral lower extremity edema. Plan to open wounds to , wound care nurse was consulted and treatment was provided. Patient was continued on his treatment for other chronic medical condition and was placed on sliding-scale insulin and monitoring her fingerstick blood glucose. Pt Condition on Discharge: Stable Discharge Disposition: Discharge Home Discharge Time: <= 30 minutes Discharge Instructions DIET: Follow Instructions for: Diabetic Diet Activities you can perform: Regular-No Restrictions Follow up Referrals: PCP Follow-up - 1 Week New Orders: PT/INR - 2-3 Days New Medications: Furosemide (Furosemide) 40 Mg Tab 40 MG PO BID@18 Prevent Heart Failure #60 Ref 3 TAB Continued Medications: Atorvastatin (Lipitor) 80 Mg Tab 80 MG PO HS Cholesterol Management #30 Ref 0 TAB Bupropion HCl ER 12 HR (Wellbutrin SR 12 HR) 150 Mg Tab 150 MG PO Q12HR Control Depression Ref 0 TAB Carvedilol (Coreg) 6.25 Mg Tab 6.25 MG PO BID HTN #60 Ref 0 TAB Cholecalciferol (Vitamin D3) 1,000 Unit Tab 1000 UNITS PO DAILY Nutritional Supplement #1 Ref 0 BOTTLE Finasteride (Proscar) 5 Mg Tab 5 MG PO DAILY Do not crush. Manage Prostate Problems #30 Ref 0 TAB Gabapentin (Gabapentin) 300 Mg Cap 900 MG PO BID #90 Ref 0 CAP Insulin Glargine Inj (Lantus Inj) 1,000 Unit/10 Ml Vial 25 UNITS SQ BID Blood Sugar Management Ref 0 VIAL Lactic Acid (Ammonium Lactate) (Ammonium Lactate) 12% Lotn 1 APPLIC TOPICAL BID PRN DRY SKIN ON FEET #225 Ref 0 ML Lisinopril (Lisinopril) 20 Mg Tab 20 MG PO DAILY #30 Ref 0 TAB Polyvinyl Alcohol Opth Drops (Artificial Tears Opth Drops) 1.4% Soln 1 DROP LEFT EYE TID PRN DRY EYE Ref 0 BOTTLE Polyvinyl Alcohol-Povidone Opth Drops (Refresh Opth Drops) 1.4-0.6% Drops 1 DROP EACH EYE QID DRY EYES #1 Ref 0 BOTTLE Potassium Chloride ER (Potassium Chloride ER) 20 Meq Tab 20 MEQ PO DAILY Electrolyte Replacement #30 Ref 0 TAB Prazosin (Prazosin) 2 Mg Cap 4 MG PO HS [place] #60 Ref 0 CAP Prednisolone Acetate Opth Drops (Omnipred Opth Drops) 1% Susp 1 DROP LEFT EYE TID Inflammation #1 Ref 0 BOTTLE Tramadol (Ultram) 50 Mg Tab 50 MG PO Q6HR PRN PAIN Ref 0 TAB Warfarin (Coumadin) 5 Mg Tab 5 MG PO MoWeFr @ 1600 Blood Clot Prevention #30 Ref 0 TAB Warfarin (Warfarin) 7.5 Mg Tab 7.5 MG PO SuTuThSa @ 1600 Blood Clot Prevention #30 Ref 0 TAB Discontinued Medications: Furosemide (Lasix) 40 Mg Tab 40 MG PO DAILY #60 Ref 0 TAB Osbaldo Morales MD Aug 06, 2016 09:28
[2016-08-06 11:23] VITALS: O2SAT 97
[2016-08-06 12:00] VITALS: BP 146/67; PULSE 67; RESP 18; TEMP 98.9; O2SAT 95
== END 2016-08-06 15:26 | disposition home or self-care (01) | DRG 293 ==
LOC: NEPE 12:31 → NEDA 17:36 → N04A 21:54
PROVIDERS: ADMIT Hospitalist; ATTEND Hospitalist
DX: I50.33 Acute on chronic diastolic (congestive) heart failure (principal); J44.9 Chronic obstructive pulmonary disease, unspecified; I48.2 Chronic atrial fibrillation; E11.9 Type 2 diabetes mellitus without complications; F32.9 Major depressive disorder, single episode, unspecified; D64.9 Anemia, unspecified; I10 Essential (primary) hypertension; M19.90 Unspecified osteoarthritis, unspecified site; I25.10 Atherosclerotic heart disease of native coronary artery without angina pectoris; J02.9 Acute pharyngitis, unspecified; F43.10 Post-traumatic stress disorder, unspecified; I87.8 Other specified disorders of veins; M79.89 Other specified soft tissue disorders; R59.0 Localized enlarged lymph nodes; E78.00 Pure hypercholesterolemia, unspecified; E78.5 Hyperlipidemia, unspecified; G47.33 Obstructive sleep apnea (adult) (pediatric); N40.0 Benign prostatic hyperplasia without lower urinary tract symptoms; Z87.891 Personal history of nicotine dependence; Z79.01 Long term (current) use of anticoagulants; Z79.4 Long term (current) use of insulin; Z95.2 Presence of prosthetic heart valve; Z95.1 Presence of aortocoronary bypass graft
CPT/HCPCS: 71010; 71250; 76937; 80048; 80061; 82948; 83036; 83735; 83880; 84484; 85025; 85610; 87040; 93005; 93306; J1644; J1940